=== PATIENT | male | born 1990 | race Caucasian/White ===

== ENCOUNTER 2020-12-12 16:43 | Emergency (ER) | payer MEDICAID ==
[~2020-12-12] VITALS: Ht 180.3 cm; Wt 70.7 kg
[2020-12-12 16:45] VITALS: BP 130/82
[2020-12-12] MEDS: LIDOcaine 1% W/epiNEPHrine 1:200,000 10ml vial IJ ONE ×2 (17:37→18:07)
[2020-12-12] MEDS ORDERED: CEPH250T PO (18:12)
--- NOTE | 2020-12-12 19:00 | NUR ---
wound was irrigated with NS, applied triple antibiotic ointment to left toes 1st, 2nd and 3rd, wrapped with guaze and coban, fitted pt with post op shoe
== END 2020-12-12 19:03 | disposition home or self-care (01) ==
LOC: ER 16:44
DX: S90.415A Abrasion, left lesser toe(s), initial encounter (principal); X58.XXXA Exposure to other specified factors, initial encounter; Y93.89 Activity, other specified; Y92.89 Other specified places as the place of occurrence of the external cause; Y99.8 Other external cause status
CPT/HCPCS: 73660; 99284